=== PATIENT | female | born 1945 | race Caucasian/White ===

== ENCOUNTER 2017-03-24 13:46 | Inpatient (IN) | payer MEDICARE ==
[~2017-03-24] VITALS: Ht 160 cm; Wt 80.9 kg
[~2017-03-24 13:46] MED LIST: AMBIEN10 MG PO; BACTROBAN 22 GM22 GM TP; BAYER CHEWABLE81 MG PO; FLORANEX / LACT1 TAB PO; K-DUR20 MEQ PO; MAG-OX 400 MG400 MG PO; MULTIPLE VITAMI1 TA1 PO; NITROSTAT0.4 MG SL; PEPCID20 MG PO; PHOS-NAK PAC1 PACKET PO; ROCALTROL0.25 MCG PO; ROCALTROL0.5 MCG PO; SODIUM BICARBO650 MG NG; SODIUM BICARBO650 MG PO; TUMS500 MG PO
[2017-03-24 14:37] LABS: BASOPHILS 0.2 % (0-2); HEMATOCRIT 31.2 % (36.0-48.0); HEMOGLOBIN 10.7 g/dL (12-16); IMMATURE GRANULOCYTES 2.3 % (0-5); LYMPHOCYTES 9.9 % (15-50); MCH 28.7 pg (26.0-34.0); MCHC 34.3 g/dL (31.0-37.0); MCV 83.6 fL (80.0-100.0); MEAN PLATELET VOLUME 10.3 fL (7.4-10.4); MONOCYTES 8.8 % (2-11); NEUTROPHILS 76.8 % (40-80); PLATELET COUNT 212 10x3/uL (130-400); RBC 3.73 10x6/uL (4.00-5.40); RDW 17.1 % (11.5-14.5)
[2017-03-24 15:46] LABS: ALBUMIN 3.2 g/dL (3.4-5.0); BILIRUBIN - TOTAL 0.4 mg/dL (0.2-1.3); PROTEIN - SERUM 6.7 g/dL (6.4-8.2)
[2017-03-24 15:47] LABS: ANION GAP 27.1 mmol/L (8-16)
[2017-03-24 15:56] LABS: CARBON DIOXIDE 9.1 mmol/L (21.0-32.0); POTASSIUM - SERUM 2.2 mmol/L (3.5-5.1)
[2017-03-24 15:57] LABS: CALCIUM 4.7 mg/dL (8.5-10.1)
[2017-03-24 17:49] LABS: PHOSPHOROUS 6.9 mg/dL (2.5-4.9)
[2017-03-24 17:58] LABS: MAGNESIUM - SERUM 0.6 mg/dL (1.8-2.4)
--- NOTE | 2017-03-24 19:51 | NUR ---
RCVD REPORT ON PT FROM NISHI IN ER. AWAITING ARRIVAL OF PT.
--- NOTE | 2017-03-24 20:04 | NUR ---
PT ARRIVED TO FLOOR FROM ER BY WHEELCHAIR ASSISTED X2. BREATHING EVEN AND UNLABORED. ORIENTED TO FLOOR AND NURSE. WILL CTM.
[2017-03-24 22:03] VITALS: BMI 33.0
--- NOTE | 2017-03-24 22:40 | NUR ---
RCVD CALL FROM LAB ABOUT CRITICAL LAB VALUE. POTASSIUM 2.4. PAGED DR. TUCEKR. AWAITING PHONE CALL.
--- NOTE | 2017-03-25 04:45 | NUR ---
PHYSICAN PAGED X2 ABOUT CRITICAL LAB VALUES WITH NO RESPONSE. WILL PUT SHEET IN BOOK AND PASS ON IN REPORT.
[2017-03-25 05:10] LABS: BASOPHILS 0.2 % (0-2); EOSINOPHILS 2.7 % (0-7); HEMATOCRIT 29.7 % (36.0-48.0); HEMOGLOBIN 10.1 g/dL (12-16); IMMATURE GRANULOCYTES 1.8 % (0-5); LYMPHOCYTES 13.9 % (15-50); MCH 28.3 pg (26.0-34.0); MCV 83.2 fL (80.0-100.0); MEAN PLATELET VOLUME 10.2 fL (7.4-10.4); MONOCYTES 14.5 % (2-11); NEUTROPHILS 66.9 % (40-80); PLATELET COUNT 172 10x3/uL (130-400); RBC 3.57 10x6/uL (4.00-5.40)
[2017-03-25 05:18] LABS: WBC 4.4 10x3/uL (4.8-10.8)
[2017-03-25 05:30] LABS: PHOSPHOROUS 5.5 mg/dL (2.5-4.9)
[2017-03-25 05:39] LABS: ANION GAP 25.7 mmol/L (8-16); CALCIUM 4.5 mg/dL (8.5-10.1); CARBON DIOXIDE 7.6 mmol/L (21.0-32.0); POTASSIUM - SERUM 2.3 mmol/L (3.5-5.1)
--- NOTE | 2017-03-25 06:01 | NUR ---
RCVD CALL FROM LAB ABOUT CRITICAL LAB VALUES. MG 1.0, POTASSIUM 2.3, CO2 7.6. HAVE PAGED MULTIPLE TIMES WITH NO RESPONSE. AWAITING THE ARRIVAL OF DOCTOR ON THE FLOOR. IF NO CALL BACK OR HE IS NOT ON THE FLOOR, WILL PASS ON IN REPORT.
--- NOTE | 2017-03-25 07:15 | NUR ---
REPORT RECEIVED. RR EVEN AND UNLABORED, PT ASLEEP. PTS POTASSIUM AND MAGNESIUM ARE CRITICAL THIS MORNING. EXHAUST EMISSIONS AUTOMOTIVE TECHNICIAN ATTEMPTED TO CALL THE PHYSICAN MULTIPLE TIMES. WILL ATTEMPT TO CALL AGAIN. NO SIGNS OF DISTRESS AT THIS TIME, WILL CTM.
--- NOTE | 2017-03-25 07:30 | NUR ---
ASSISTED PT TO BATHROOM X1 ASSIST. PT HAS UNSTEADY GAIT. REINFORCED TEACHING ON FALL PRECAUTIONS AND ENCOURAGED PT TO CALL FOR ASSITANCE.
--- NOTE | 2017-03-25 07:45 | NUR ---
PAGED ROSELYN FAUST RENAL DESIGN MAINTENANCE ENGINEER REGARDING PTS CRITICAL LABS. WILL AWAIT CALL BACK.
[2017-03-25 08:00] VITALS: BP 87/42
--- NOTE | 2017-03-25 08:15 | NUR ---
PARKING ENFORCEMENT OFFICER REPORTED LOW BP OF 87/42. RENAL TYPING SECTION CHIEF ALREADY PAGED, STILL AWAITING CALL BACK. PT REPORTS THAT HER BP USAUALLY RUNS LOW. FROM PREVIOUS SHIFT, NO VS HAVE BEEN ENTERED INTO THE EHR. UNABLE TO FIND DOCUMENTATION OF VS. PT IS ALERT AND ORIENTED X4. PT DOES NOT REPORT ANY SYMPTOMS OF LOW BP.
--- NOTE | 2017-03-25 08:30 | NUR ---
SPOKE TO DR. MARTIN REGARDING PT CONDTION. NO NEW ORDERS, EXPLAINED THAT HE WILL COME UP AND ASSESS PT THIS MORNING. WILL CTM.
--- NOTE | 2017-03-25 10:10 | NUR ---
MOON CATHETER INSERTED PER ORDERS. 24 HR URINE STARTED. PT DENIES FURTHER NEEDS AND VERBALIZED UNDERSTANDING FOR NEED OF MOON. WILL CTM.
[2017-03-25 10:38] LABS: % SATURATION 95 % (15-55); IRON 161 ug/dl (35-150); TOTAL IRON BIND CAPACITY 169 ug/dl (260-445)
[2017-03-25 10:39] LABS: UNSAT IRON BIND CAPACITY 8 ug/dl (150-375)
[2017-03-25 12:00] VITALS: BP 97/47
[2017-03-25 16:00] VITALS: BP 93/54
--- NOTE | 2017-03-25 18:36 | NUR ---
PT RESTING QUIELTY, RR EVEN AND UNLABORED. PT DENIES NEEDS AT THIS TIME. MOON CATHETER EMPTIED, 24 HR URINE STILL IN PROGRESS. URINE CONTIANER IS ON ICE. WILL GIVE REPORT ON PT CONDITION FOR THE DAY.
--- NOTE | 2017-03-25 20:00 | NUR ---
INITIAL ROUNDS, PT NEEDING TO GO TO BR TO HAVE A BM. ASSISTED UP AND PT AMBULATED TO BATHROOM AND HAD A BM. BACK TO BED. IVF D5.45NS + 40KCL + 2GMAG INFUSING TO RIGHT A/C AT 75ML/HR. MOON PATENT AND DRAINING YELLOW URINE. URINE IS ON ICE FOR A 24 HOUR URINE SPECIMEN. DAUGHTER AT BEDSIDE.
[2017-03-25 21:07] VITALS: BP 84/48
[2017-03-26 00:42] VITALS: BP 102/52
[2017-03-26 04:46] VITALS: BP 106/56
[2017-03-26 06:47] LABS: ALBUMIN 2.6 g/dL (3.4-5.0); BILIRUBIN - TOTAL 0.2 mg/dL (0.2-1.3); CARBON DIOXIDE 10.2 mmol/L (21.0-32.0); CREATININE - SERUM 4.5 mg/dL (0.6-1.3); PHOSPHOROUS 4.9 mg/dL (2.5-4.9); PROTEIN - SERUM 5.8 g/dL (6.4-8.2)
[2017-03-26 06:53] LABS: MAGNESIUM - SERUM 1.9 mg/dL (1.8-2.4)
[2017-03-26 06:54] LABS: ANION GAP 22.7 mmol/L (8-16); POTASSIUM - SERUM 2.9 mmol/L (3.5-5.1)
--- NOTE | 2017-03-26 07:30 | NUR ---
REPORT RECEIVED. RR EVEN AND UNLABORED. PT DENIES NEEDS AT THIS TIME. PT IS SALINE LOCKED DUE TO ORDER BEING INCORRECT IN COMPUTER. PT ALSO HAS CRITICAL K+ AND CA+ THIS MORNING. WILL SPEAK TO DR. STUBBS REGARDING PT CONDTION. WILL CTM.
[2017-03-26 08:00] VITALS: BP 102/59
--- NOTE | 2017-03-26 09:00 | NUR ---
SPOKE TO DR. TUCKER REGARDING PT CONDTION. REPORTED CRITICAL LAB VALUES. ADDRESSED ISSUE OF IV FLUIDS. EXPLAINED THAT FLUIDS WERE NOT GIVEN DUE TO THE FLUIDS BEING ORDERED A ONE TIME DOSE. GAVE TELEHPONE ORDER TO START FLUIDS AND MAKE IT A CONTINUOUS ORDER. SPOKE TO [facility] AND THEY WILL PUT THE ORDER IN. NO OTHER NEW ORDERS AT THIS TIME. WILL START FLUIDS WHEN AVAILALBE FROM [facility].
--- NOTE | 2017-03-26 10:22 | NUR ---
24 HR URINE COMPLETE. TOOK SAMPLE TO LAB. WILL CTM.
[2017-03-26 10:34] LABS: CREATININE - URINE 24.4 mg/dL (30-125)
--- NOTE | 2017-03-26 10:42 | NUR ---
RESTITED PTS IV TO LEFT FA 22G X2 STICKS. PT DENIES NEEDS, WILL CTM.
[2017-03-26 12:00] VITALS: BP 115/64
--- NOTE | 2017-03-26 13:46 | NUR ---
PT IN BED RESTING WITH EYES CLOSE.HEART MONITOR INTACT RUNNING SR. MOON INTACT WITH DARK COLOR URINE. IV TO RIGHT AC SALINE LOCKED. IV TO LEFT FA INTACT AND RUNNING AT 75CC WITH NS PIGGY BACK AT 20CC/HR. WILL CONT TO MONITOR.
[2017-03-26 16:00] VITALS: BP 91/47
--- NOTE | 2017-03-26 18:56 | NUR ---
PT TOOK HOME MEDICATION, METOPROLOL 50MG, NORVAC 5MG, RENAL GEL FROM HER OWN MEDICATION THAT CAME FROM HER BAG AND RETURNED TO HER BAG BACK IN THE CLOSET.
[2017-03-26 19:38] LABS: ALBUMIN 2.5 g/dL (3.4-5.0); CREATININE - SERUM 4.1 mg/dL (0.6-1.3); PHOSPHOROUS 4.4 mg/dL (2.5-4.9)
[2017-03-26 19:39] LABS: MAGNESIUM - SERUM 2.4 mg/dL (1.8-2.4)
[2017-03-26 19:40] LABS: ANION GAP 23.2 mmol/L (8-16)
[2017-03-26 19:43] LABS: CARBON DIOXIDE 8.7 mmol/L (21.0-32.0); POTASSIUM - SERUM 2.9 mmol/L (3.5-5.1)
[2017-03-26 20:21] VITALS: BP 86/46
[2017-03-27 00:37] VITALS: BP 90/45
--- NOTE | 2017-03-27 00:50 | NUR ---
NEW IVF OF D5NS + CALCIUM GLUCONATE UP AND INFUSING. PT RESTING. CLEAN/DRY. SR UP X 2. MOON PATENT TO BEDSIDE DRAIN BAG. CPOC.
--- NOTE | 2017-03-27 03:13 | NUR ---
PT DECLINED OFFERED BED BATH SAYING HER DAUGHTER WOULD BATHE HER IN THE MORNING.
[2017-03-27 05:26] VITALS: BP 106/55
[2017-03-27 06:08] LABS: ALBUMIN 2.5 g/dL (3.4-5.0); MAGNESIUM - SERUM 2.4 mg/dL (1.8-2.4); PHOSPHOROUS 5.3 mg/dL (2.5-4.9)
[2017-03-27 06:12] LABS: ANION GAP 22.5 mmol/L (8-16)
[2017-03-27 06:13] LABS: CALCIUM 5.7 mg/dL (8.5-10.1); CARBON DIOXIDE 9.5 mmol/L (21.0-32.0)
--- NOTE | 2017-03-27 07:43 | NUR ---
AM ROUNDING- RECEIVED REPORT FROM COTTON TIPPER NURSE RENEE. PT IS CURRENTLY SITTING UP IN BED WITH EYES OPEN RESTING. ON ROOM AIR (O2 SAT IS 92%). ON MONITOR SHOWING SR, HR 72. IV SEEN TO LEFT FOREARM WITH CALCIUM GLUCONATE RUNNING AT 75CC. NS RUNNING AT KVO (20CC). MOON CATHETER SEEN (NO URINE IN BAG CURRENTLY). NO NEED AT THIS CURRENT TIME. WILL CONTINUE TO MONITOR AND CONTINUE WITH PLAN OF CARE.
[2017-03-27 08:00] VITALS: BP 99/48
[2017-03-27 12:00] VITALS: BP 113/56
[2017-03-27 16:00] VITALS: BP 92/52
--- NOTE | 2017-03-27 16:14 | NUR ---
Patient Name: LUCAS ADAMS Admission Status: ER Accout number: [id number] Admission Date: 03-24-2017 : 1945 Admission Diagnosis: Attending: JODEE Current LOS: 3 Anticipated DC Date: Planned Disposition: Home Primary Insurance: MEDICARE A & B Discharge Planning Comments: * Is the patient Alert and Oriented? Yes 0 * How many steps to enter\exit or inside your home? 5 0 * PCP DR. BENJAMIN 0 * Pharmacy [facility] [address] 0 * Preadmission Environment Home with Family 0 * ADLs Independent 0 * Equipment None 0 * Other Equipment NO MEDICAL EQUIPMENT PROVIDER PREFERENCE 0 * List name and contact numbers for known caregivers / representatives who currently or will assist patient after discharge: MOLLY MEHTA, DTR, 0 * Community resources currently utilized None 0 * Please name any agencies selected above. NONE 0 * Additional services required to return to the preadmission environment? No 0 * Can the patient safely return to the preadmission environment? Yes 0 * Has this patient been hospitalized within the prior 30 days at any hospital? No 0 CM RECEIVED ORDER FOR ALCOHOL OR DRUG ABUSE SCREENING. CM MET WITH PT IN ROOM TO DISCUSS DISCHARGE PLANNING AND NEEDS. PT REPORTS LIVING AT HOME INDEPENDENTLY WITH HER ADULT DAUGHTER, SON IN LAW AND TWO GRAND CHILDREN. PT HAS A WALKER WITH NO MEDICAL EQUIPMENT PROVIDER PREFERENCE. PT HAS NO OUTSIDE SERVICES ASSISTING IN THE HOME. CM DISCUSSED AVAILABILITY OF HOME HEALTH, REHAB SERVICES AND MEDICAL EQUIPMENT. PT REPORTS SHE WAS HAVING TROUBLE AFFORDING HER POTASSIUM FOR THE PAST 4 MONTHS WHEN HER MEDICAID WAS CUT OFF, BUT NOW THAT IT HAS BEEN CUT BACK ON, SHE HAS SIX SLOTS AND CAN AFFORD HER MEDICATIONS AGAIN. PT DENIES DISCHARGE NEEDS, REPORTS PLAN TO DISCHARGE HOME AND RETURN TO WORK THREE DAYS A WEEK AT THE [employer] [facility] IN [place] [place]. PT REPORTS HER FAMILY WILL PICK HER UP FOR DISCHARGE HOME. IMPORTANT MESSAGE FROM MEDICARE PROVIDED AND EXPLAINED. PT PLANS TO DISCHARGE HOME, DENIES DISCHARGE NEEDS AT THIS TIME. CM TO FOLLOW AND ASSIST NEEDED. Driver Utility Worker: Addison Estrella
--- NOTE | 2017-03-27 18:23 | NUR ---
PT IS CURRENTLY SITTING UP IN BED EATING ICE CREAM. FAMILY MEMBERS ARE AT BEDSIDE. WILL CONTINUE TO MONITOR.
[2017-03-27 18:36] LABS: ERYTHROCYTE SEDIMENTATION RATE 13 mm/hr (0-30)
[2017-03-27 18:47] LABS: APPEARANCE CLEAR (CLEAR); COLOR YELLOW (YELLOW)
[2017-03-27 18:48] LABS: BILIRUBIN NEGATIVE (NEGATIVE); GLUCOSE NEGATIVE (NEGATIVE); KETONE NEGATIVE (NEGATIVE); NITRITE NEGATIVE (NEGATIVE); PROTEIN TRACE mg/dL (NEGATIVE); UROBILINOGEN NORMAL (NORMAL)
[2017-03-27 18:53] LABS: EPITHELIAL CELLS OCC /hpf (0-5); WHITE CELLS - URINE 0-5 /hpf (0-5)
[2017-03-27 18:54] LABS: BACTERIA FEW /hpf (NONE SEEN)
[2017-03-27 19:09] LABS: CREATININE - URINE 23.6 mg/dL (30-125); PRO/CRE RATIO URINE 1.9 mg/g; PROTEIN - URINE 45.5 mg/dL (0.0-11.9)
--- NOTE | 2017-03-27 19:47 | NUR ---
Resting on back eyes closed. Denies any needs at this time. Call light in reach, bed in low position.
[2017-03-27 20:11] VITALS: BP 94/49
--- NOTE | 2017-03-27 23:18 | NUR ---
Resting with eyes closed. Telemety shows SR 71. Denies needs at this time. Bed low, call light in reach.
[2017-03-28 00:04] VITALS: BP 105/55
--- NOTE | 2017-03-28 00:15 | NUR ---
ROUNDING ON PT'S MADE. NO NEEDS VOICED. DENIES ANY CURRENT C/O PAIN. MONITOR TECHNICIAN IN ROOM TO DO VS. CALL LIGHT WITHIN REACH. NURSE STATES NO CHANGES NOTED SINCE INITIAL ASSESSMENTS. WILL CONT TO MONITOR.
--- NOTE | 2017-03-28 02:30 | NUR ---
PATIENTS SKIN IS VERY DRY. PATIENT HAS HEAD LICE AND IS NOW BEING PLACED ON ISOLATION UNTIL TREATED. IV IN RIGHT AC HAS BEEN DISCONTINUED , IT WAS NO LONGER PATENT. CATHETER INTACT. IV FLUIDS ARE RUNNING INTO THE LEFT WRIST. BED IN LOW POSITION, CALL LIGHT IN REACH.
[2017-03-28 04:24] VITALS: BP 106/47
--- NOTE | 2017-03-28 06:22 | NUR ---
PATIENT IS STILL SLEEPING. IV PATENT AND INFUSEING. PATIENTS SKIN IS STILL DRY AND SCALY, AND HER LIPS ARE VERY CHAPPED. BED IN LOW POSITION, CALL LIGHT IN REACH.
--- NOTE | 2017-03-28 07:44 | NUR ---
AM ROUNDS - PT IS IN BED AND AWAKE AT THIS TIME. PT IS UP AD CORRINE. PER DUMP TRUCK DRIVER OFF [address], MONITOR AHOEING SR, HR 76. PT IS ON ROOM AIR. IV TO LEFT FA, NS WITH 20K AT 125CC/HR. SARAI. PT IS ON CONTACT ISO. BED AT LOWEST POSITION. CALL VÁZQUEZ IN USE/REACH. SIDE RAILS UP X2. WILL CONTINUE TO MONITOR.
[2017-03-28 08:18] VITALS: BP 91/50
[2017-03-28 10:19] LABS: CALCIUM - 24HR 63.6 mg/24 hr (100.0-300.0); CALCIUM - UR 2.4 mg/dL (Not Estab.)
[2017-03-28 12:16] VITALS: BP 96/44
[2017-03-28 13:26] LABS: CREATININE - SERUM 3.3 mg/dL (0.6-1.3); POTASSIUM - SERUM 3.3 mmol/L (3.5-5.1)
[2017-03-28 13:35] LABS: ANION GAP 23.5 mmol/L (8-16)
[2017-03-28 13:36] LABS: CALCIUM 6.6 mg/dL (8.5-10.1); CARBON DIOXIDE 8.8 mmol/L (21.0-32.0)
[2017-03-28 14:54] VITALS: BP 86/47
--- NOTE | 2017-03-28 17:25 | NUR ---
PT IN BED AT THIS TIME WITH NO NEEDS. WILL CONTINUE TO MONITOR
[2017-03-28 20:06] VITALS: BP 88/31
--- NOTE | 2017-03-28 20:13 | NUR ---
PATIENT RESTING IN BED. AWAKE AND ALERT. REQUESTS ICE WATER, SHE HAS TWO FULL CUPS OF WATER AT BEDSIDE, BUT DOES NOT WANT THEM. SKIN IS DRY AND SCALY. LIPS ARE CHAPPED AND PEELING. BED LOW, CALL LIGHT IN REACH.
[2017-03-28 20:39] LABS: CREATININE - SERUM 3.1 mg/dL (0.6-1.3)
[2017-03-28 21:07] LABS: ANION GAP 21.4 mmol/L (8-16); CARBON DIOXIDE 11.6 mmol/L (21.0-32.0)
[2017-03-28 21:08] LABS: CALCIUM 6.9 mg/dL (8.5-10.1)
[2017-03-29 00:57] VITALS: BP 96/52
--- NOTE | 2017-03-29 02:47 | NUR ---
PATIENT IS RESTING COMFORTABLY. DENIES ANY PAIN OR ANY NEEDS AT THIS TIME. HER POTASSIUM IS 3.0 AND HER CO2 IS 11.6 . SHE IS BEING TREATED FOR BOTH . NEW LABS ARE SCHEDULED TO BE DRAWN IN THE MORNING. BED LOW, CALL LIGHT IN REACH.
--- NOTE | 2017-03-29 04:04 | NUR ---
PT AWAKE, ALERT, LOOKING AT TELEVISION, RESTING COMFORTABLY. CONTINUE TO MONITOR CLOSELY. BED LOW, CALL LIGHT IN REACH, SIDE RAILS X 2, HOB 35 DEGREES.
[2017-03-29 04:48] LABS: BASOPHILS 0.2 % (0-2); EOSINOPHILS 5.6 % (0-7); HEMOGLOBIN 10.5 g/dL (12-16); IMMATURE GRANULOCYTES 0.9 % (0-5); LYMPHOCYTES 9.2 % (15-50); MCH 28.2 pg (26.0-34.0); MCHC 32.8 g/dL (31.0-37.0); MONOCYTES 11.4 % (2-11); NEUTROPHILS 72.7 % (40-80); RBC 3.72 10x6/uL (4.00-5.40); WBC 5.3 10x3/uL (4.8-10.8)
[2017-03-29 04:55] LABS: PLATELET COUNT 218 10x3/uL (130-400)
[2017-03-29 05:06] LABS: ANION GAP 20.2 mmol/L (8-16); CARBON DIOXIDE 10.7 mmol/L (21.0-32.0)
[2017-03-29 05:11] VITALS: BP 82/43
[2017-03-29 05:29] LABS: POTASSIUM - SERUM 2.9 mmol/L (3.5-5.1)
--- NOTE | 2017-03-29 06:43 | NUR ---
PATIENT HAS A K+ OF 2.9. SHE IS ON NS 20 K AT 125 ML/HR. SHE IS GETTING K-DUR 20 MEQ TAB. SHE HAD A 3.0 K YESTERDAY.
--- NOTE | 2017-03-29 07:33 | NUR ---
REPORT RECEIVED. RR EVEN AND UNLABORED, PT ASLEEP. WILL CTM.
[2017-03-29 08:15] VITALS: BP 94/47
[2017-03-29 12:14] VITALS: BP 123/59
[2017-03-29 12:16] LABS: MAGNESIUM - URINE 1.6 mg/dL (Not Estab.); MAGNESIUM - URINE 24HR 42.4 mg/24 hr (12.0-293.0)
[2017-03-29 14:46] VITALS: Ht 160 cm; Wt 80.9 kg
[2017-03-29 16:02] VITALS: BP 88/56
[2017-03-29 16:14] LABS: SPE - A/G RATIO 1.3 (0.7-1.7); SPE - ALPHA-1 GLOBULIN 0.2 g/dL (0.0-0.4); SPE - ALPHA-2 GLOBULIN 0.6 g/dL (0.4-1.0); SPE - BETA GLOBULIN 0.8 g/dL (0.7-1.3); SPE - GAMMA GLOBULIN 0.8 g/dL (0.4-1.8); SPE - M-SPIKE Not Observed g/dL (Not Observed); SPE - TOTAL PROTEIN 5.4 g/dL (6.0-8.5)
[2017-03-29 21:09] VITALS: BP 82/40
--- NOTE | 2017-03-29 22:01 | NUR ---
PATIENT IS RESTING AND TAKES HER PILLS WITH WATER. SHE REPORTS THAT HER IV WAS LEAKING, BUT AFTER INSPECTION , NO LEAK IS NOTED. WILL WATCH IV CAREFULLY. BED LOW, CALL LIGHT IN REACH.
--- NOTE | 2017-03-30 01:48 | NUR ---
PATIENT IS UP WITH ONE PERSON ASSIST TO THE BATHROOM. SHE REPORTS A DESIRE TO START PHYSICAL THERAPY TOMORROW IF POSSIBLE. NEW BACK OF NS WITH 20 K AND SODIUM BICARB HUNG. DENIES ANY NEEDS AT THIS TIME. BED LOW, CALL LIGHT IN REACH.
[2017-03-30 01:59] VITALS: BP 88/43
--- NOTE | 2017-03-30 05:25 | NUR ---
POURER METAL AT BEDSIDE TO OBTAIN VITALS, CALL LIGHT IN REACH. WILL CONTINUE WITH PLAN OF CARE.
[2017-03-30 05:27] LABS: BASOPHILS 0.2 % (0-2); EOSINOPHILS 6.7 % (0-7); HEMATOCRIT 26.6 % (36.0-48.0); HEMOGLOBIN 8.8 g/dL (12-16); IMMATURE GRANULOCYTES 0.7 % (0-5); LYMPHOCYTES 13.7 % (15-50); MCH 28.2 pg (26.0-34.0); MCHC 33.1 g/dL (31.0-37.0); MCV 85.3 fL (80.0-100.0); MEAN PLATELET VOLUME 9.8 fL (7.4-10.4); MONOCYTES 11.6 % (2-11); NEUTROPHILS 67.1 % (40-80); RBC 3.12 10x6/uL (4.00-5.40); RDW 17.8 % (11.5-14.5); WBC 4.2 10x3/uL (4.8-10.8)
[2017-03-30 05:34] LABS: PLATELET COUNT 174 10x3/uL (130-400)
[2017-03-30 05:54] VITALS: BP 87/42
[2017-03-30 06:14] LABS: CREATININE - SERUM 2.5 mg/dL (0.6-1.3)
[2017-03-30 06:21] LABS: ANION GAP 18.4 mmol/L (8-16); CALCIUM 6.6 mg/dL (8.5-10.1); CARBON DIOXIDE 14.2 mmol/L (21.0-32.0)
[2017-03-30 06:22] LABS: POTASSIUM - SERUM 2.6 mmol/L (3.5-5.1)
--- NOTE | 2017-03-30 07:01 | NUR ---
CRITICAL LABS NOTED. K 2.6, CALCIUM 6.6 . ALREADY BEING TREATED.
--- NOTE | 2017-03-30 07:20 | NUR ---
AM ROUNDS- PT IN BED ASKING FOR A BLANKET WILL PROVIDED PT WITH A BLANKET. PT A/O, RESP EVEN AND UNLABORED. LT FA INFUSING NS KCL 20MEQ AND BICARB AT 125. PT DENIES ANY OTHER NEEDS AT THIS TIME. CALL LIGHT IN REACH, NAD NOTED, WILL CONTINUE PLAN OF CARE.
[2017-03-30 07:55] VITALS: BP 80/48
--- NOTE | 2017-03-30 08:43 | NUR ---
AM MEDS GIVEN, PT IN BED, WATCHING TV, DENIES ANY NEEDS AT THIS TIME. CALL LIGHT IN REACH, NAD NOTED, WILL CONTINUE PLAN OF CARE.
--- NOTE | 2017-03-30 12:03 | NUR ---
PT IN BED, EATING LUNCH, DENIES ANY NEEDS AT THIS TIME. CALL LIGHT IN REACH, NAD NOTED.
[2017-03-30 12:21] VITALS: BP 104/58
--- NOTE | 2017-03-30 13:15 | NUR ---
LT FA IV INFILTRATED. REMOVED IV WITH TIP INTACT. NEW 22G IV STARTED TO LT FA X2 STICKS, PT TOLERATED PROCEDURE WELL. DENIES ANY NEEDS AT THIS TIME, CALL LIGHT IN REACH, NAD NOTED.
[2017-03-30 15:25] VITALS: BP 91/61
--- NOTE | 2017-03-30 19:54 | NUR ---
PT IN BED RESTING QUIETLY WITH EYES CLOSED. BREATHING EVEN AND UNLABORED. BED IN LOW POSITION, CALL LIGHT WITHIN REACH. WILL CTM.
[2017-03-30 21:43] VITALS: BP 88/53
[2017-03-31 01:21] VITALS: BP 80/50
[2017-03-31 05:18] VITALS: BP 91/52
[2017-03-31 05:53] LABS: BASOPHILS 0.2 % (0-2); EOSINOPHILS 8.7 % (0-7); HEMATOCRIT 26.9 % (36.0-48.0); HEMOGLOBIN 8.9 g/dL (12-16); LYMPHOCYTES 17.2 % (15-50); MCH 28.4 pg (26.0-34.0); MCHC 33.1 g/dL (31.0-37.0); MCV 85.9 fL (80.0-100.0); MEAN PLATELET VOLUME 9.6 fL (7.4-10.4); MONOCYTES 10.8 % (2-11); NEUTROPHILS 62.1 % (40-80); PLATELET COUNT 173 10x3/uL (130-400); RBC 3.13 10x6/uL (4.00-5.40); RDW 17.8 % (11.5-14.5); WBC 4.8 10x3/uL (4.8-10.8)
[2017-03-31 06:30] LABS: CREATININE - SERUM 2.1 mg/dL (0.6-1.3)
[2017-03-31 06:35] LABS: ANION GAP 13.1 mmol/L (8-16); CARBON DIOXIDE 21.5 mmol/L (21.0-32.0); POTASSIUM - SERUM 2.6 mmol/L (3.5-5.1)
[2017-03-31 06:36] LABS: CALCIUM 6.4 mg/dL (8.5-10.1)
--- NOTE | 2017-03-31 07:55 | NUR ---
AM ROUNDING- RECEIVED REPORT FROM STEVEDORE DOCK NURSE HOLLI. PT IS CURRENTLY LAYING IN BED WITH EYES CLOSED RESTING (BLANKET COVERING PTS FACE). IN CONTACT ISOLATION (FOR LICE). ON ROOM AIR. ON MONITOR SHOWING SR, HR 74. IV SEEN TO LEFT FOREARM WITH D5 WITH 20K+ RUNNING AT 125CC. MOON CATHETER SEEN WITH NO URINE IN BAG CURRENTLY. WILL CONTINUE TO MONITOR AND CONTINUE WITH PLAN OF CARE.
[2017-03-31 08:00] VITALS: BP 89/54
[2017-03-31 12:00] VITALS: BP 94/51
--- NOTE | 2017-03-31 13:11 | NUR ---
PHARMACY CALLED REGARDING NOT HAVING MEDICATIONS NEEDED TO GIVE PT ORDERED. PHARMACY STATES THEY WILL BRING MEDICATIONS. WILL AWAIT TO GIVE ALL ORDERED MEDICATIONS ONCE PHARMACY BRINGS MEDICATIONS THAT ARE NOT AVAILABLE.
[2017-03-31 16:00] VITALS: BP 82/45
--- NOTE | 2017-03-31 20:13 | NUR ---
PT IN BED RESTING QUIETLY. DENIES ANY PAIN OR NEEDS AT THIS TIME. BREATHING EVEN AND UNLABORED. BED IN LOW POSITION, CALL LIGHT WITHIN REACH. WILL CTM.
[2017-03-31 21:40] VITALS: BP 88/48
[2017-04-01] VITALS: BP 93/52
[2017-04-01 04:16] VITALS: BP 87/51
--- NOTE | 2017-04-01 05:33 | NUR ---
PT IN BED RESTING QUIETLY. BREATHING EVEN AND UNLABORED. DENIES ANY PAIN OR NEEDS AT THIS TIME. BED IN LOW POSITION, CALL LIGHT WITHIN REACH. WILL CTM.
[2017-04-01 05:44] LABS: BASOPHILS 0.3 % (0-2); EOSINOPHILS 8.5 % (0-7); HEMOGLOBIN 9.1 g/dL (12-16); IMMATURE GRANULOCYTES 0.8 % (0-5); LYMPHOCYTES 16.2 % (15-50); MCH 28.3 pg (26.0-34.0); MCHC 32.5 g/dL (31.0-37.0); MCV 87.2 fL (80.0-100.0); MEAN PLATELET VOLUME 9.8 fL (7.4-10.4); MONOCYTES 9.7 % (2-11); NEUTROPHILS 64.5 % (40-80); PLATELET COUNT 176 10x3/uL (130-400); RBC 3.21 10x6/uL (4.00-5.40); RDW 17.8 % (11.5-14.5)
[2017-04-01 05:47] LABS: WBC 6.6 10x3/uL (4.8-10.8)
[2017-04-01 06:03] LABS: CARBON DIOXIDE 21.4 mmol/L (21.0-32.0); CREATININE - SERUM 1.8 mg/dL (0.6-1.3)
[2017-04-01 06:07] LABS: ANION GAP 13.7 mmol/L (8-16); POTASSIUM - SERUM 3.1 mmol/L (3.5-5.1)
[2017-04-01 06:08] LABS: CALCIUM 6.3 mg/dL (8.5-10.1)
--- NOTE | 2017-04-01 06:19 | NUR ---
RCVD CALL FROM LAB ABOUT CRITICAL LAB VALUE. CALCIUM 6.3. DOCTORS ALREADY AWARE OF PROBLEM AND PT BEING CURRENTLY TREATED FOR IT.
--- NOTE | 2017-04-01 07:10 | NUR ---
MORNING ROUNDS MADE. PATIENT LAYING IN BED, EYES CLOSED. CHEST RISES AND FALLS EQUALLY BILAT. NAD NOTED AT THIS TIME. WILL CONTINUE TO MONITOR. CPOC.
[2017-04-01 08:00] VITALS: BP 96/55
--- NOTE | 2017-04-01 10:20 | NUR ---
PATIENT SITTING UP IN BED, WATCHING TV. MORNING MEDS GIVEN WITHOUT ISSUES. WILL CALL PHARMACY TO BRING UP MORE CALCITRIOL, THERE WERE NOT ENOUGH IN THE PYXIS. NO NEEDS AT THIS TIME. CPOC.
[2017-04-01 12:00] VITALS: BP 88/51
--- NOTE | 2017-04-01 12:00 | NUR ---
PATIENT SITTING UP IN BED EATING LUNCH, DENIES ANY NEEDS AT THIS TIME. CPOC
--- NOTE | 2017-04-01 14:26 | NUR ---
PATIENT SITTING UP IN BED, WATCHING TV. MEDS GIVEN. NO REQUESTS OR COMPLAINTS AT THIS TIME. BED IN LOWEST POSITION WITH CALL LIGHT IN REACH. CPOC.
[2017-04-01 16:00] VITALS: BP 104/63
--- NOTE | 2017-04-01 17:04 | NUR ---
PATIENT STATES HER IV IS "LEAKING". LEFT FA IV ASSESSED. HER ARM WAS DAMP AND THEIR WAS CLEAR FLUID UNDER THE DRESSING. THE IV WAS REMOVED, CATHETER TIP WAS INTACT. AFTER 2 FAILED ATTEMPTS AT INSERTING A NEW IV, I TOLD PT I WOULD HAVE SOMEONE ELSE COME IN AND TAKE A LOOK. PT VOICED UNDERSTANDING. CPOC.
--- NOTE | 2017-04-01 18:00 | NUR ---
PATIENT SITTING IN BED. IV RESITED BY [place], 1 ATTEMPT, RT AC, 20G.
--- NOTE | 2017-04-01 19:00 | NUR ---
EVENING ROUNDS MADE. PATIENT DENIES ANY NEEDS AT THIS TIME. CPOC.
[2017-04-01 21:22] VITALS: BP 96/62
--- NOTE | 2017-04-01 22:19 | NUR ---
INITIAL ROUNDS COMPELTED AT 1914 HRS. PT DENIED ANY DISCOMFORT. ASSESSMENT COMPLETEDA T 1954 HRS. VSS. SR PER CM HR 71. IV TO RAC WITH D51/2NS WITH 40 MEQ KCL AT 75CC/HR. IV PATENT. LUNGS DIMINISHED IN BASES BILAT. MOON DRAINING YELLOW URINE. PM MEDS GIVEN PER ORDERS. PT CURRENTLY RESTING WITH EYES CLOSED. RESP EVEN AND REGULAR. SR UP X2, CALL LIGHT WITHIN REACH.
--- NOTE | 2017-04-02 00:20 | NUR ---
PT RESTING WITH EYES CLOSED. RESP EVEN AND REGULAR. SR UP X2, CALL LIGHT WITHIN REACH.
[2017-04-02 01:32] VITALS: BP 98/60
--- NOTE | 2017-04-02 02:15 | NUR ---
ICE WATER GIVEN PER REQUEST. PT DENIES ANY DISCOMFORT. WILL CONTINUE TO MONITOR.
--- NOTE | 2017-04-02 04:07 | NUR ---
PT AWAEK; DENIES ANY DISCOMFORT. WILL CONTINUE TO MONITOR.
[2017-04-02 04:27] VITALS: BP 96/59
[2017-04-02 04:39] LABS: BASOPHILS 0.1 % (0-2); EOSINOPHILS 6.7 % (0-7); HEMATOCRIT 28.3 % (36.0-48.0); HEMOGLOBIN 8.9 g/dL (12-16); LYMPHOCYTES 14.5 % (15-50); MCH 28.2 pg (26.0-34.0); MCHC 31.4 g/dL (31.0-37.0); MEAN PLATELET VOLUME 9.7 fL (7.4-10.4); MONOCYTES 12.4 % (2-11); NEUTROPHILS 65.3 % (40-80); PLATELET COUNT 157 10x3/uL (130-400); RBC 3.16 10x6/uL (4.00-5.40); RDW 17.9 % (11.5-14.5); WBC 7.3 10x3/uL (4.8-10.8)
[2017-04-02 04:42] LABS: MCV 89.6 fL (80.0-100.0)
[2017-04-02 04:56] LABS: CARBON DIOXIDE 18.9 mmol/L (21.0-32.0); CREATININE - SERUM 1.4 mg/dL (0.6-1.3)
[2017-04-02 05:10] LABS: CALCIUM 6.6 mg/dL (8.5-10.1); POTASSIUM - SERUM 3.9 mmol/L (3.5-5.1)
--- NOTE | 2017-04-02 05:12 | NUR ---
AM CALCIUM 6.6. MD AWARE OF LOW CALCIUM. TRENDING UPWARDS.
--- NOTE | 2017-04-02 06:04 | NUR ---
VSS THROUGHOUT NIGHT. SR PER CM. PT DENIED ANY DISCOMFORT. NEEDS MET; WILL CONTINUE TO MONITOR.
--- NOTE | 2017-04-02 07:20 | NUR ---
MORNING ROUNDS MADE. PATIENT LAYING IN BED, EYES CLOSED. CHEST RISES AND FALLS EQUALLY BILAT. NAD NOTED. CPOC.
--- NOTE | 2017-04-02 08:34 | NUR ---
PATIENT SITTING ON SIDE OF BED. ASSISTED TO BATHROOM AND BACK TO BED. MORNING MEDS GIVEN. PT REQ ICE WATER. NO OTHER REQUESTS AT THIS TIME. CPOC.
[2017-04-02 09:06] VITALS: BP 104/60
--- NOTE | 2017-04-02 11:00 | NUR ---
PT UP TO BR SINK WASHING HER HANDS, STATES SHE IS DOING ALRIGHT OVERALL AND WANTS TO BE DISCHARGED SOON. DENIES ANY CURRENT PAIN OR NEEDS.
[2017-04-02 12:00] VITALS: BP 105/63
--- NOTE | 2017-04-02 14:27 | NUR ---
PATIENT LAYING IN BED, WATCHING TV. MEDS GIVEN WITHOUT ISSUES. STATES SHE MAY GET TO GO HOME TOMORROW AND ASKED IF WE WERE GOING TO DC HER MOON TO SEE IF SHE COULD PEE BEFORE SHE LEFT. ADVISED I DIDN'T SEE ANY NEW ORDERS, BUT I WOULD CHECK IN TO IT. VOICED UNDERSTING. DENIES ANY NEEDS AT THIS TIME. WILL CONTINUE TO MONITOR. CPOC.
[2017-04-02 16:00] VITALS: BP 109/71
--- NOTE | 2017-04-02 18:16 | NUR ---
PATIENT SITTING UP IN BED, WATCHING TV. ADVISED IF SHE WOULD LIKE HER MOON OUT, I CAN TAKE IT OUT TONIGHT. PATIENT WAS AGREEABLE. MOON REMOVED WITHOUT PROBLEMS. ASKED PATIENT IF SHE WOULD LIKE ASSISTANCE TO THE BATHROOM. STATES SHE DOESN'T FEEL LIKE SHE NEEDS TO GO AT THIS TIME. INSTRUCTED PATIENT IF SHE HASN'T PEED IN 6 HOURS, TO INFORM THE NURSE SO A BLADDER SCAN CAN BE DONE AND EXPLAINED SHE MAY NEED AN I&O CATH DONE. EXPLAINED THE IMPORTANCE OF THIS. PATIENT VOICED UNDERSTANDING AND STATES SHE WILL GET UP SHORTLY AND TRY TO VOID. INSTRUCTED HER SHE SHOULD GET UP AND TRY EVERY 2 HOURS UNTIL SHE FEELS CONFIDENT SHE IS EMPTYING HER BLADDER COMPLETELY. VOICED UNDERSTANDING. CPOC.
--- NOTE | 2017-04-02 18:32 | NUR ---
END OF SHIFT ROUNDS MADE. PATIENT LET ME KNOW SHE WAS ABLE TO VOID WITHOUT ISSUES. ASKED IF SHE FELT HER BLADDER WAS EMPTY, BUT SHE SAYS SHE'S NOT SURE. INSTRUCTED HER TO PUSH ON HER ABDOMEN/BLADDER WITH HER HANDS NEXT TIMES SHE GOES TO THE BATHROOM TO SEE IF THAT WILL HELP HER GO. VOICED UNDERSTAND. INSTRUCTED HER TO USE HER CALL LIGHT IF SHE NEEDS ANYTHING. BED LOCKED AND IN LOWEST POSITION. CALL LIGHT IN REACH. CPOC.
[2017-04-02 19:00] VITALS: BP 117/50
--- NOTE | 2017-04-02 22:49 | NUR ---
INITIAL ROUNS COMPLETED AT 1920 HRS. PT DENIED ANY DISCOMFORT. ASSESSMENT COMPLETED AT 1940 HRS. VSS. SR PER CM HR 79. IV TO RAC SALINE LOCKED AT THAT TIME PER PT'S INSISTANCE STATING SHE IS GOING HOME IN AM. BRUISES NOTED TO BILAT ARMS. LUNGS CTA. PT ALERT AND ORIENTED TO PERSN, PLACE AND TIME. UP AD CORRINE. PM MEDS GIVEN PER ORDERS. PT CURRENTLY RESTING WITH EYES CLOSED. RESP EVEN AND REGULAR. SR UP X2, CALL LIGHT WITHIN REACH.
[2017-04-03 00:29] VITALS: BP 90/50
--- NOTE | 2017-04-03 00:31 | NUR ---
PT RESTING WITH EYES CLOSED. RESP EVEN AND REGULAR. SR UP X2, CALL LIGHT WITHIN REACH.
--- NOTE | 2017-04-03 02:23 | NUR ---
PT RESTING WITH EYES CLOSED. RESP EVEN AND REGULAR. SR UP X2, CALL LIGHT WITHIN REACH.
--- NOTE | 2017-04-03 04:49 | NUR ---
PT RESTING WITH EYES CLOSED. RESP EVEN AND REGULAR. SR UP X2, CALL LIGHT WITHIN REACH.
[2017-04-03 05:03] VITALS: BP 92/54
--- NOTE | 2017-04-03 06:40 | NUR ---
VSS THROUGHOUT NIGHT. SR PER CM. PT DENIED ANY DISCOMFORT. NEEDS MET; WILL CONTINUE TO MONTIOR.
--- NOTE | 2017-04-03 07:20 | NUR ---
MORNING ROUNDS MADE. PATIENT LAYING IN BED WITH EYES CLOSED. CHEST RISES AND FALLS EQUALLY. NAD NOTED AT THIS TIME. CPOC.
[2017-04-03 08:14] VITALS: BP 108/53
--- NOTE | 2017-04-03 10:17 | NUR ---
MORNING MEDS GIVEN WITHOUT PROBLEMS. PATIENT STATES SHE HAS BEEN VOIDING/HAVING BMS WITHOUT ANY PROBLEMS. STATES SHE WILL BE GOING HOME TODAY. ADVISED I WILL WATCH FOR ORDERS AND KEEP HER UPDATED. CPOC.
[2017-04-03 12:05] VITALS: BP 110/64
--- NOTE | 2017-04-03 12:32 | NUR ---
PATIENT REQUEST I WRAP HER IV SO SHE CAN SHOWER. IV WRAPPED UP. WE GOT HER NEW LINENS/GOWN. PATIENT IN SHOWER. INSTRUCTED TO PULL CORD IN BATHROOM IF SHE NEEDS ASSISTANCE. VOICED UNDERSTANDING. PT ASKED IF WE GOT ORDERS FOR DC. INFORMED I HAVEN'T SEEN THEM IN THE SYSTEM YET, BUT I WOULD CHECK ON IT. CPOC.
--- NOTE | 2017-04-03 13:34 | NUR ---
PATIENT RESTING, DENIES ANY NEEDS. CPOC
--- NOTE | 2017-04-03 13:35 | NUR ---
Nutrition follow-up: Diet: Regular PO intake ~75% of meals labs reviewed +BM Wt: 178# PO intake good at this time RDN following.
--- NOTE | 2017-04-03 15:50 | NUR ---
PATIENT SITTING ON BEDSIDE WITH FAMILY PRESENT. WENT OVER ALL DISCHARGE PAPERWORK WITH PATIENT AND HER DAUGHTER. THEY BOTH VOICED UNDERSTANDING. ALL QUESTIONS ANSWERED. IV REMOVED, CATHETER TIP INTACT. HELD PRESSURE AND OVERED WITH BANDAGE. ESCORTED TO DAUGHTER'S VEHICLE VIA WHEELCHAIR.
--- NOTE | 2017-04-03 17:01 | NUR ---
Patient Name: LUCAS ADAMS Encounter No: [id number] : 1945 Primary Insurance: MEDICARE A & B Anticipated DC Date: 04-03-2017 Planned Disposition: Home DCP follow-up note: CM MET WITH PT IN ROOM TO DISCUSS DISCHARGE NEEDS AND PLANNING. CM DISCUSSED AVAILABILITY OF HOME HEALTH, REHAB SERVICES AND MEDICAL EQUIPMENT. PT DENIES DISCHARGE NEEDS. DAUGHTER IS HERE TO TRANSPORT HOME AT DISCHARGE TODAY. IMPORTANT MESSAGE FROM MEDICARE PROVIDED AND EXPLAINED. Addison Estrella, CASE MANAGEMENT
== END 2017-04-03 15:50 | disposition home or self-care (01) | DRG 683 ==
LOC: D.ER 13:46 → D.M2 18:25
PROVIDERS: Emergency Medicine; Internal Medicine Nephrology; ADMIT Internal Medicine
DX: N17.9 Acute kidney failure, unspecified (principal); E87.2 Acidosis; E86.0 Dehydration; N28.9 Disorder of kidney and ureter, unspecified; E87.6 Hypokalemia; E83.42 Hypomagnesemia; B85.0 Pediculosis due to Pediculus humanus capitis; E83.51 Hypocalcemia